=== PATIENT | male | born 1970 | race Caucasian/White ===

== ENCOUNTER → 2020-09-27 06:52 | Outpatient (CLI) | payer OTHER, SELFPAY ==
[2020-09-27 19:11] LABS: SARS-CoV-2 RNA PCR Negative
== END ==
PROVIDERS: PCP Internal Medicine; Visit Provider Nurse Practitioner
DX: R52 Pain, unspecified (principal); Z20.822 Contact with and (suspected) exposure to COVID-19
CPT/HCPCS: C9803; U0003; U0005

== ENCOUNTER 2021-01-10 00:34 | Day surgery (SDC) | payer OTHER, SELFPAY ==
[2020-12-27 11:53] VITALS: BMI 34.1
[2020-12-27 12:11] VITALS: BMI 34.1
[2021-01-10 08:18] VITALS: BP 153/95; PULSE 100; RESP 18; TEMP 36.8; O2SAT 100; BMI 34.7
[2021-01-10 08:32] LABS: Glucose Point of Care 197 mg/dl (65-105)
[2021-01-10] MEDS: LACTATED RINGERS 1,000 ML 150 ML IV CONT (08:32)
--- NOTE | 2021-01-10 08:36 | WPDANESEPPF ---
Anes - Initial Pre Proc Eval Procedure: Operation Date: 01/10/21 09:00 Proposed Procedures p Esophagogastroduodenoscopy & Screening Colonoscopy - Sae Glasgow MD Date/Time: 01/10/21 08:36 Surgeon: Sae Glasgow MD Pre Op Diagnosis: hiccups, GERD, Neoplasm screening Patient Data Age: 50 Gender: M Height: 1.8 m Weight: 112.9 kg Last Vital Signs Temp 36.8 C 01/10/21 08:18 Pulse 100 01/10/21 08:18 Resp 18 01/10/21 08:18 BP 153/95 H 01/10/21 08:18 Pulse Ox 100 01/10/21 08:18 Allergies Allergy/AdvReac Type Severity Reaction Status Date / Time No Known Allergies Allergy Verified 01/10/21 08:11 Home Medications Medication Instructions Recorded Confirmed Type wmvizkyl-gncbtjbm-ezeiv acid 400 1 tablet PO DAILY tablet 10/06/19 12/27/20 History mcg-vit K 20 mcg-lycop 300 mcg tablet testosterone enanthate 50 mg/0.5 50 mg SUB-Q .2XWEEKLY ml 10/06/19 12/27/20 History mL subcutaneous auto-injector metformin 1,000 mg tablet 2,000 mg PO DAILY #180 tablet 12/18/19 12/27/20 Rx mecobalamin (vitamin B12) 5,000 5,000 mcg PO DAILY tablet 12/21/19 12/27/20 History mcg disintegrating tablet meloxicam 15 mg tablet 15 mg PO DAILY 04/09/20 12/27/20 History amlodipine 10 mg tablet 10 mg PO DAILY #90 tablet 11/29/20 12/27/20 Rx lisinopril 40 mg tablet 40 mg PO DAILY #90 tablet 11/29/20 12/27/20 Rx dulaglutide 3 mg/0.5 mL 3 mg SUBCUT WEEKLY 12/02/20 12/27/20 History subcutaneous pen injector pantoprazole 40 mg tablet,delayed 40 mg PO QAM 12/02/20 12/27/20 History release alendronate-vitamin D3 3,000 tablet PO DAILY 12/27/20 12/27/20 History famotidine 20 mg PO DAILY 12/27/20 12/27/20 History Laboratory Tests 01/10/21 08:30 POC Capillary Glucose 197 mg/dl H mg/dl (65-105) Patient hx anesthesia problems: none Family hx anesthesia problems: none Results Review: All pre-operative results and documents have been reviewed as part of the pre-operative evaluation. [facility] Past Medical History Medical History COVID Diabetes GERD (gastroesophageal reflux disease) HTN (hypertension) Surgical History Surgical History (Updated 01/10/21 @ 08:37 by Paul Sanabria MD) History of appendectomy 1973 History of left hip replacement 2009 History of repair of ACL History of right hip replacement 2017 Family History Family History Mother Hypertension Diabetes mellitus Alzheimers disease Father Hypertension Diabetes mellitus Heart problem Pancreatic cancer Grandparent Carcinoma of colon Alzheimers disease Sibling Irritable bowel syndrome Social History Social History Smoking status: Former smoker Tobacco type: cigarettes Additional smoking assessment comments: quit 21 years ago Alcohol intake: former Substance use: unknown Substance use type: does not use Living arrangements: with family 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 Informed Consent: The patient's anesthetic plan and its attendant risks and benefits were discussed with the patient/family/POA. Questions were solicited and answers provided to the satisfaction of the patient/family/POA.
--- NOTE | 2021-01-10 09:01 | PM.HPGS ---
History of Present Illness History of Present Illness Consent: Risks, benefits, and alternatives have been discussed and questions answered. Patient agrees to proceed with procedure. Chief complaint: hiccups, GERD, Neoplasm screening Narrative: Gavino Grace is a 50 year old male with gerd controlled with protonix, hiccups since COVID but slowly improving. Never had scopes. Review of Systems Constitutional: Constitutional: Denies headache(s) and Denies weakness Eyes: Eyes: Denies blurry vision ENT: Reports Normal hearing present, Denies headache(s) and Denies neck pain Cardiovascular: Cardiovascular: Denies chest pain and Denies dyspnea Respiratory: Respiratory: Denies dyspnea Gastrointestinal: Gastrointestinal: Reports no additional gastrointestinal complaints Genitourinary: Genitourinary: Denies dysuria Musculoskeletal: Musculoskeletal: Denies neck pain Integumentary/Breasts: Skin/Breast: Denies dry skin Neurologic: Reports Normal hearing present, Denies headache(s) and Denies weakness Psychiatric: Psychiatric: Denies anxiety Endocrine: Endocrine: Denies change in body appearance Hematologic/Lymphatic: Hematologic/Lymphatic: Denies easy bleeding Allergic/Immunologic: Allergic/Immunologic: Denies urticaria PMFSH Past Medical History Medical History (Updated 01/10/21 @ 09:02 by Sae Glasgow MD) Colon cancer screening COVID Diabetes GERD (gastroesophageal reflux disease) HTN (hypertension) Surgical History Surgical History (Updated 01/10/21 @ 08:37 by Paul Sanabria MD) History of appendectomy 1973 History of left hip replacement 2009 History of repair of ACL History of right hip replacement 2016 Family History Family History Mother Hypertension Diabetes mellitus Alzheimers disease Father Hypertension Diabetes mellitus Heart problem Pancreatic cancer Grandparent Carcinoma of colon Alzheimers disease Sibling Irritable bowel syndrome Social History Social History Smoking status: Former smoker Tobacco type: cigarettes Additional smoking assessment comments: quit 21 years ago Alcohol intake: former Substance use: unknown Substance use type: does not use Living arrangements: with family 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 Gender identity (if verbalized by the patient): Male Spiritual care concerns: No Meds Home Medications and Allergies Home Medications Medication Instructions Recorded Confirmed Type dyzoduyn-ilohjpyg-hdbgy acid 400 1 tablet PO DAILY tablet 10/06/19 12/27/20 History mcg-vit K 20 mcg-lycop 300 mcg tablet testosterone enanthate 50 mg/0.5 50 mg SUB-Q .2XWEEKLY ml 10/06/19 12/27/20 History mL subcutaneous auto-injector metformin 1,000 mg tablet 2,000 mg PO DAILY #180 tablet 12/18/19 12/27/20 Rx mecobalamin (vitamin B12) 5,000 5,000 mcg PO DAILY tablet 12/21/19 12/27/20 History mcg disintegrating tablet meloxicam 15 mg tablet 15 mg PO DAILY 04/09/20 12/27/20 History amlodipine 10 mg tablet 10 mg PO DAILY #90 tablet 11/29/20 12/27/20 Rx lisinopril 40 mg tablet 40 mg PO DAILY #90 tablet 11/29/20 12/27/20 Rx dulaglutide 3 mg/0.5 mL 3 mg SUBCUT WEEKLY 12/02/20 12/27/20 History subcutaneous pen injector pantoprazole 40 mg tablet,delayed 40 mg PO QAM 12/02/20 12/27/20 History release alendronate-vitamin D3 3,000 tablet PO DAILY 12/27/20 12/27/20 History famotidine 20 mg PO DAILY 12/27/20 12/27/20 History Allergies Allergy/AdvReac Type Severity Reaction Status Date / Time No Known Allergies Allergy Verified 01/10/21 08:11 Vital Signs Vital Signs - 24 hr 01/10/21 08:18 Temperature 98.2 F Pulse Rate 100 Respiratory Rate 18 Blood Pressure 153/95 H Pulse Oximetry 100 Exam Const: General: comfortable and no acute distress HENMT: General nose e
[2021-01-10 09:30] VITALS: BP 104/65; PULSE 86; RESP 17; O2SAT 96
[2021-01-10 09:40] VITALS: BP 131/83; PULSE 91; RESP 20; O2SAT 97
[2021-01-10 09:48] LABS: Glucose Point of Care 181 mg/dl (65-105)
[2021-01-10 09:50] VITALS: BP 138/89; PULSE 80; RESP 17; O2SAT 97
== END 2021-01-10 10:01 | disposition home or self-care (01) ==
PROVIDERS: PCP Internal Medicine; Visit Provider Internal Medicine Gastroenterology
PROC: 0DJ08ZZ Inspection of Upper Intestinal Tract, Via Natural or Artificial Opening Endoscopic (ICD-10-PCS; CPT 43235; principal; 2021-01-10 09:00)
DX: Z12.11 Encounter for screening for malignant neoplasm of colon (principal); K29.50 Unspecified chronic gastritis without bleeding; K21.00 Gastro-esophageal reflux disease with esophagitis, without bleeding; K64.8 Other hemorrhoids; R06.6 Hiccough; E11.9 Type 2 diabetes mellitus without complications; I10 Essential (primary) hypertension; Z96.643 Presence of artificial hip joint, bilateral; Z87.891 Personal history of nicotine dependence
CPT/HCPCS: 45378; 43239; 82948; 88305; 88342; J2001; J2704; J7120

== ENCOUNTER 2022-04-09 09:47 | Emergency (ER) | payer OTHER, SELFPAY ==
[2022-04-09 10:02] VITALS: BP 190/97; PULSE 95; RESP 12; TEMP 36.7; O2SAT 98
[2022-04-09 10:06] VITALS: BP 207/111; PULSE 95; RESP 12; TEMP 36.7; O2SAT 98
--- NOTE | 2022-04-09 10:20 | ED.SKABFB ---
HPI - Skin/Abscess/Foreign Bdy General Chief complaint: Skin/Abscess/Foreign Body Stated complaint: Lump on Left Side of Neck Time Seen by Provider: 04/09/22 10:15 Source: patient and RN notes reviewed Mode of arrival: ambulatory Limitations: dementia History of Present Illness HPI narrative: 51-year-old male presents with concern for painful rash on his left scalp, tenderness and drainage behind the left ear. He reports he had a telehealth visit and started on amoxicillin for the drainage behind his left ear 3 days ago without improvement, reports the painful rash has worsened. He denies trouble swallowing, fever, aches, chills, sweats, difficulty hearing. Reports headache MD complaint: rash Related Data Home Medications Medication Instructions Recorded Confirmed fudpzgno-krisotlz-xuezm acid 400 1 tablet PO DAILY 10/06/19 04/09/22 mcg-vit K 20 mcg-lycop 300 mcg tablet (One-A-Day Men's Multivitamin) mecobalamin (vitamin B12) 5,000 5,000 mcg PO DAILY 12/21/19 04/09/22 mcg disintegrating tablet cholecalciferol (vitamin D3) 50 50 mcg PO DAILY 04/09/22 04/09/22 mcg (2,000 unit) tablet omega 2-odj-oel-fish oil 1,600 5 ml PO DAILY 04/09/22 04/09/22 mg-500 mg-800 mg/5 mL oral liquid (Fish Oil) Allergies Allergy/AdvReac Type Severity Reaction Status Date / Time No Known Allergies Allergy Verified 04/09/22 10:03 Review of Systems Review of Systems: CONSTITUTIONAL: Denies malaise, chills, sweats, or fever. EYES: Denies redness, or discharge. ENT: Denies rhinorrhea, congestion, swollen lips, swollen tongue CARDIOVASCULAR: Denies chest pain, palpitations, or edema. RESPIRATORY: Denies cough or dyspnea. GASTROINTESTINAL: Denies abdominal pain, nausea, vomiting SKIN: Reports painful itchy rash on the left posterior scalp. Reports tenderness and drainage in the crease behind the left ear. Denies bullae, numbness, pain beyond proportion MUSCULOSKELETAL: Denies joint pain or myalgia. NEUROLOGIC: Denies headache. All systems reviewed & are unremarkable except as noted in HPI and below PMFSH Past Medical History Medical History (Updated 04/09/22 @ 10:23 by Janis Rdz NP) Colon cancer screening COVID Diabetes GERD (gastroesophageal reflux disease) HTN (hypertension) Obesity Surgical History Surgical History History of appendectomy 1973 History of left hip replacement 2009 History of repair of ACL History of right hip replacement 2017 Family History Family History Mother Hypertension Diabetes mellitus Alzheimers disease Father Hypertension Diabetes mellitus Heart problem Pancreatic cancer Grandparent Carcinoma of colon Alzheimers disease Sibling Irritable bowel syndrome Social History Social History Smoking status: Former smoker Tobacco type: cigarettes Additional smoking assessment comments: quit 21 years ago Alcohol intake: former Substance use: unknown Substance use type: does not use Living arrangements: with family Occupation/Education: occupation 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 There is no relevant family history pertinent to the presenting complaint Exam Narrative: GENERAL: Well-appearing, well-nourished, and in no acute distress. HEAD: Normocephalic, atraumatic. EYES: PERRLA, conjunctivae clear ENT: Mucous membranes moist. NECK: Supple. No lymphadenopathy CHEST: Clear to auscultation. No respiratory distress. HEART: Regular rate and rhythm. SKIN: Warm, dry. Zosteriform rash noted on the patient's scalp behind the left ear. The crease behind the left ear has a smal
== END 2022-04-09 10:35 | disposition home or self-care (01) ==
PROVIDERS: Emergency Provider Nurse Practitioner; PCP Internal Medicine
DX: S11.90XA Unspecified open wound of unspecified part of neck, initial encounter (principal); L08.9 Local infection of the skin and subcutaneous tissue, unspecified; X58.XXXA Exposure to other specified factors, initial encounter; B02.9 Zoster without complications; Z87.891 Personal history of nicotine dependence; E11.9 Type 2 diabetes mellitus without complications; K21.9 Gastro-esophageal reflux disease without esophagitis; I10 Essential (primary) hypertension; E66.9 Obesity, unspecified; Z68.34 Body mass index [BMI] 34.0-34.9, adult; Z86.16 Personal history of COVID-19; Z96.643 Presence of artificial hip joint, bilateral
CPT/HCPCS: 87070; 87075; 87076; 87147; 87185; 87205; 99213; G0463

== ENCOUNTER 2022-06-23 07:38 | Outpatient (RCR) | payer OTHER, SELFPAY ==
[2022-06-23 10:36] VITALS: BMI 34.1
[2022-06-23 15:39] VITALS: BMI 34.1
== END 2022-09-07 11:12 | disposition home or self-care (01) ==
LOC: ANHDMC 07:38
PROVIDERS: PCP Internal Medicine; Visit Provider Internal Medicine
DX: E66.01 Morbid (severe) obesity due to excess calories (principal); Z68.35 Body mass index [BMI] 35.0-35.9, adult; Z71.3 Dietary counseling and surveillance
CPT/HCPCS: 97802

== ENCOUNTER 2022-12-01 15:27 | Outpatient (CLI) | payer OTHER, SELFPAY ==
[2022-12-01 16:36] LABS: Basophils Percent Auto 0.4 % (0.2-1.2); Eosinophils Absolute Auto 0.1 K/mm3 (0-0.3); Eosinophils Percent Auto 1.3 % (0-4.4); Hematocrit 56.3 % (42.0-52.0); Hemoglobin 18.7 g/dL (14.0-18.0); Immature Granulocyte Absolute 0.03 K/mm3 (0.00-0.031); Immature Granulocyte Percent A 0.4 % (0-0.5); Lymphocytes Absolute Auto 2.23 K/mm3 (0.9-3.2); Lymphocytes Percent Auto 27.2 % (18.3-44.2); Mean Corpuscular HGB Conc 33.2 g/dl (32-36); Mean Corpuscular Hemoglobin 27.9 pg (26-34); Mean Platelet Volume 10.5 fl (7.4-10.4); Monocytes Absolute Auto 0.7 K/mm3 (0.1-0.6); Monocytes Percent Auto 8.3 % (2.6-8.5); Neutrophils Absolute Auto 5.1 K/mm3 (1.3-6.7); Neutrophils Percent Auto 62.4 % (45.5-73.1); Platelet Count Result 281 k/mm3 (150-375); White Blood Count 8.2 K/mm3 (4.5-10.0)
[2022-12-01 16:46] LABS: Alanine Aminotransferase 51 U/L (6-50); Albumin Level 4.5 g/dL (3.5-5.1); Alkaline Phosphatase 65 U/L (38-126); Anion Gap 11 mmol/L (8-16); Aspartate Amino Transferase 40 U/L (17-59); Blood Urea Nitrogen 9 mg/dL (9-20); Calcium 9.7 mg/dL (8.4-10.2); Carbon Dioxide 33 mmol/L (22-30); Chloride 96 mmol/L (98-107); Estimated Glomerular Filt Rate > 60; Glucose 142 mg/dL (65-110); Potassium 3.7 mmol/L (3.4-5.0); Sodium 140 mmol/L (137-145)
== END 2022-12-01 15:28 | disposition home or self-care (01) ==
LOC: ANHGOSHLAB 15:28
PROVIDERS: PCP Internal Medicine; Visit Provider Nurse Practitioner
DX: R11.2 Nausea with vomiting, unspecified (principal)
CPT/HCPCS: 36415; 80053; 85025

== ENCOUNTER 2023-05-13 11:46 | Outpatient (CLI) | payer OTHER, SELFPAY ==
--- NOTE | ~2023-05-13 | CT_ITS ---
EXAMINATION: CT abdomen pelvis w con DATE: 05/13/2023 12:36 INDICATION: Unspecified abdominal pain. Pleurodynia. TECHNIQUE: Computed tomography (CT) of the abdomen and pelvis was performed with 100 mL Omnipaque 350 intravenous contrast. Automated exposure control and iterative reconstruction technique were employe d. The dose-length product was 1129.59 mGy-cm. COMPARISON: None. FINDINGS: The visualized portions of the lung bases demonstrate mild atelectasis. No pleural effusion . The heart size is normal. No pericardial effusion. The liver and spleen are normal. The gallbladder is distended. The pancreas, adrenal glands, and kidneys are normal. The prostate is mildly enlarged. There are no dilated loops of bowel. The appendix is not visualized. There are no pathologically enl arged lymph nodes. There is no free intraperitoneal fluid. There are bilateral hip arthroplasties. Th ere is severe lower lumbar spondylosis. IMPRESSION: 1. Gallbladder distention, which may be secondary to fasting. Correlate with physical exam to exclude acute cholecystitis. Reviewed, dictated and finalized at location A. GRADER IMPRESSION: 1. Gallbladder distention, which may be secondary to fasting. Correlate with ph ysical exam to exclude acute cholecystitis.
[2023-05-13 12:27] LABS: Estimated Glomerular Filt Rate > 60
== END 2023-05-13 11:47 | disposition home or self-care (01) ==
LOC: ANHIMG 11:46
PROVIDERS: PCP Internal Medicine; Visit Provider Clinical Nurse Specialist
DX: R07.81 Pleurodynia (principal); R10.9 Unspecified abdominal pain
CPT/HCPCS: 74177; Q9967

== ENCOUNTER 2023-05-13 14:01 | Emergency (ER) | payer OTHER, SELFPAY ==
--- NOTE | ~2023-05-13 | US_ITS ---
EXAMINATION: US right upper quadrant DATE: 05/13/2023 16:04 INDICATION: Right anterior rib pain and tachycardia. Gallbladder distended on CT. TECHNIQUE: Multiple grayscale and Doppler ultrasound images of the abdomen were obtained. COMPARISON: CT dated 05/13/2023 FINDINGS: The pancreatic head and body are normal in appearance. The pancreatic tail is not visualized. Liver has normal echogenicity and contour, with a smooth surface. No liver lesion identified. No intrahepat ic biliary duct dilation suspected. Portal venous flow was seen in the hepatopetal, normal direction and has normal Doppler waveform. The gallbladder is normal in appearance. There is no cholelithiasis . The common bile duct measures 6 mm, which is normal. Sonographic Lima sign was reported as negati ve by the electrician's helper. The visualized proximal inferior vena cava is normal. IMPRESSION: 1. Normal right upper quadrant ultrasound. Reviewed, dictated and finalized at location L. N CONTRACT REPRESENTATIVE
--- NOTE | ~2023-05-13 | CT_ITS ---
EXAMINATION: CTA chest PE protocol DATE: 05/13/2023 15:45 INDICATION: Right inferior rib pain. TECHNIQUE: Computed tomography angiography (CTA) of the chest was performed with 100 mL Omnipaque-350 intravenous contrast timed to evaluate the pulmonary arteries. Coronal maximum intensity projection 3D-reconstructions were created by the technologist. Automated exposure control and iterative reconst ruction technique were employed. The dose-length product was 825.28 mGy-cm. COMPARISON: CT abdomen and pelvis 05/13/2023 FINDINGS: The visualized portions of the lung bases demonstrate mild atelectasis. No pleural effusion . The heart size is normal. No pericardial effusion. There is no pulmonary embolus. The gallbladder i s distended. There is mild thoracic spondylosis. There are changes of anterior fusion procedure in ce rvical spine. IMPRESSION: 1. No pulmonary embolus. 2. Gallbladder distention, which may be secondary to fasting. Correlate with physical exam to exclude acute cholecystitis. Reviewed, dictated and finalized at location A. ULAR TECHNOLOGIST SONOGRAPHER IMPRESSION: 1. No pulmonary embolus. 2. Gallbladder distention, which may be secondary to fasting. Correlate with ph ysical exam to exclude acute cholecystitis.
[2023-05-13 14:30] VITALS: BP 161/98; PULSE 116; RESP 16; TEMP 36.5; O2SAT 96
--- NOTE | 2023-05-13 14:59 | ECG_ITS ---
Measurements Intervals [place] Rate: 108 P: 53 TX: 151 QRS: 18 QRSD: 86 T: 30 QT: 306 QTc: 411 Interpretive Statements SINUS TACHYCARDIA SEPTAL MYOCARDIAL INFARCTION , OF INDETERMINATE AGE [40+ ms Q WAVE IN V1/V2] NO PREVIOUS ECG AVAILABLE FOR COMPARISON Electronically Signed On 05-13-2023 15:54:56 MENTAL HYGIENIST by Shae Montesinos M.D.
--- NOTE | 2023-05-13 15:03 | ED.ABDPAIN ---
HPI - Abdominal Pain General Chief Complaint: Abdominal Pain Stated Complaint: sent by PCP Time Seen by Provider: 05/13/23 14:40 History of Present Illness HPI narrative: 52-year-old male with a history of hypertension, diabetes, recent shoulder surgery performed on 04/21/2023 presents to the emergency department for evaluation of right inferior rib and right upper quadrant Abdominal pain x3 days. patient states the pain feels burning and describes it as needle-like sensation similar to prior shingles. Patient states he went to his PCP who was concerned it may be early onset shingles , however there is no rash so she ordered a CT scan of his abdomen/pelvis. Outpatient CT today which shows gallbladder distention which may be secondary to fasting verses acute cholecystitis. Patient states PCP contacted him and urged him to come to the ER for further evaluation. He states his pain started in his right side and points to his inferior right ribs and upper abdomen. States it is now radiating more anteriorly and posteriorly up into his back. He denies aggravating or relieving factors, chest pain or shortness of breath, lower extremity edema, prior history of VTE. Prior abdominal surgeries include appendectomy. He is not anticoagulated. Related Data Home Medications Medication Instructions Recorded Confirmed ecmuntuw-zpyxhdug-ufxfn acid 400 1 tablet PO DAILY 10/06/19 05/11/23 mcg-vit K 20 mcg-lycop 300 mcg tablet (One-A-Day Men's Multivitamin) mecobalamin (vitamin B12) 5,000 5,000 mcg PO DAILY 12/21/19 05/11/23 mcg disintegrating tablet cholecalciferol (vitamin D3) 50 50 mcg PO DAILY 04/09/22 05/11/23 mcg (2,000 unit) tablet Allergies Allergy/AdvReac Type Severity Reaction Status Date / Time No Known Allergies Allergy Verified 05/13/23 14:42 Review of Systems Review of Systems: CONSTITUTIONAL: Denies fever, chills, or sweats. EYES: Denies visual changes, redness, or discharge. ENT: Denies rhinorrhea, congestion, sore throat, or otalgia. CARDIOVASCULAR: see HPI RESPIRATORY: Denies cough or dyspnea. GASTROINTESTINAL: See HPI GENITOURINARY: Denies dysuria or hematuria. SKIN: Denies rash or itching. MUSCULOSKELETAL: Denies back pain, joint pain, or myalgia. NEUROLOGIC: Denies headache, numbness, or weakness. PSYCHIATRIC: Denies anxiety or depression. [facility] Past Medical History Medical History Anterior ST segment depression Cervical radiculopathy due to intervertebral disc disorder Colon cancer screening COVID Diabetes GERD (gastroesophageal reflux disease) HTN (hypertension) Obesity Ptosis of eyelid, left Shingles Type 2 diabetes mellitus Surgical History Surgical History History of appendectomy 1973 History of left hip replacement 2009 History of repair of ACL History of right hip replacement 2017 Family History Family History Mother Hypertension Diabetes mellitus Alzheimers disease Father Hypertension Diabetes mellitus Heart problem Pancreatic cancer Grandparent Carcinoma of colon Alzheimers disease Sibling Irritable bowel syndrome Social History Social History Smoking status: Former smoker Tobacco type: cigarettes Additional smoking assessment comments: quit 21 years ago Alcohol intake: former Substance use: unknown Substance use type: does not use Current Housing: Decline to Answer Concerned About Future Housing: Decline to Answer Difficulty Paying Gas/Electric Bills: Decline to Answer Difficulty Paying for Meds: Decline to Answer Currently Unemployed: Decline to Answer Education: Decline to Answer Difficulty w/ Childcare or Family Care: Decline to Answer Living arrangements: with family Occupation/E
[2023-05-13] MEDS: ACETAMINOPHEN 500 MG TABLET 1000 MG PO (15:19)
[2023-05-13] MEDS: SODIUM CHLORIDE 0.9% IV 1,000 ML 999 ML IV CONT ×2 (15:21→16:08)
[2023-05-13 15:30] LABS: Basophils Percent Auto 0.3 % (0.2-1.2); Eosinophils Absolute Auto 0.1 K/mm3 (0-0.3); Eosinophils Percent Auto 0.9 % (0-4.4); Hemoglobin 18.4 g/dL (14.0-18.0); Immature Granulocyte Absolute 0.03 K/mm3 (0.00-0.031); Immature Granulocyte Percent A 0.3 % (0-0.5); Lymphocytes Absolute Auto 2.06 K/mm3 (0.9-3.2); Lymphocytes Percent Auto 20.1 % (18.3-44.2); Mean Corpuscular HGB Conc 33.5 g/dl (32-36); Mean Corpuscular Hemoglobin 28.4 pg (26-34); Mean Platelet Volume 9.8 fl (7.4-10.4); Monocytes Absolute Auto 0.8 K/mm3 (0.1-0.6); Monocytes Percent Auto 7.4 % (2.6-8.5); Neutrophils Absolute Auto 7.3 K/mm3 (1.3-6.7); Platelet Count Result 310 k/mm3 (150-375); Red Blood Count 6.47 M/mm3 (4.6-6.20); White Blood Count 10.2 K/mm3 (4.5-10.0)
[2023-05-13 15:36] LABS: Estimated CRCL calculation 109 ml/min; Estimated Glomerular Filt Rate > 60
[2023-05-13 15:42] LABS: Alanine Aminotransferase 38 U/L (6-50); Albumin Level 4.6 g/dL (3.5-5.1); Alkaline Phosphatase 78 U/L (38-126); Anion Gap 12 mmol/L (8-16); Aspartate Amino Transferase 37 U/L (17-59); Bilirubin,Total 0.9 mg/dL (0.2-1.3); Blood Urea Nitrogen 16 mg/dL (9-20); Calcium 9.7 mg/dL (8.4-10.2); Carbon Dioxide 29 mmol/L (22-30); Chloride 98 mmol/L (98-107); Estimated CRCL calculation 109 ml/min; Estimated Glomerular Filt Rate > 60; Glucose 171 mg/dL (65-110); Lipase 319 U/L (23-300); Potassium 3.3 mmol/L (3.4-5.0); Sodium 139 mmol/L (137-145)
[2023-05-13 15:53] LABS: Troponin I < 0.012 ng/mL (0.000-0.034)
[2023-05-13 16:00] LABS: Appearance Urine Clear (Clear); Bacteria Urine None Seen /hpf; Bilirubin Urine Negative (Negative); Blood Urine Negative (Negative); Color Urine Yellow (Yellow); Glucose Urine UA Negative (Negative); Ketones Urine Trace mg/dL (Negative); Leukocyte Esterase Ur Negative LEU/UL (Negative); Need Manual Microscopic Reviewed; Nitrate Urine Negative (Negative); Non Pathogenic Casts 0-2; Protein Urine 1+ mg/dL (Negative); RBC Urine 0-2 /hpf (0-2); Squamous Epithelial Cell Urine None seen /hpf (Few); Urobilinogen Urine 0.2 mg/dL (<2.0); WBC Urine 0-5 /hpf
[2023-05-13 16:04] LABS: Add Urine Microscopic? YES
[2023-05-13 16:46] VITALS: BP 151/98; PULSE 100; RESP 14; O2SAT 98
[2023-05-13] MEDS: POTASSIUM CHLORIDE 20 MEQ PACKET (FOR LIQUID) PO (16:46)
[2023-05-13] MEDS: MORPHINE SULFATE (*CRX) 4 MG/ML INJ IV PUSH (16:47)
[2023-05-13 17:44] VITALS: BP 154/98; PULSE 103; RESP 13; TEMP 36.6; O2SAT 99
== END 2023-05-13 17:45 | disposition home or self-care (01) ==
PROVIDERS: Emergency Provider Physician Assistant; PCP Internal Medicine
DX: R10.11 Right upper quadrant pain (principal); E86.0 Dehydration; I10 Essential (primary) hypertension; E11.9 Type 2 diabetes mellitus without complications; E66.9 Obesity, unspecified; Z68.31 Body mass index [BMI] 31.0-31.9, adult; Z96.643 Presence of artificial hip joint, bilateral; Z86.16 Personal history of COVID-19; Z87.891 Personal history of nicotine dependence; Z79.4 Long term (current) use of insulin; Z79.85 Long-term (current) use of injectable non-insulin antidiabetic drugs; Z79.84 Long term (current) use of oral hypoglycemic drugs
CPT/HCPCS: 36415; 71275; 74177; 76705; 80053; 81001; 83690; 84484; 85025; 93005; 96361; 96374; 99284; A9270; J2270; J7030; Q9967

== ENCOUNTER 2023-06-22 15:15 | Outpatient (CLI) | payer OTHER, SELFPAY ==
--- NOTE | ~2023-06-22 | US_ITS ---
US right upper quadrant INDICATION: Right upper quadrant pain PROCEDURE: Realtime right upper abdominal ultrasound. COMPARISON: 05/13/2023 FINDINGS: The pancreas is normal without focal mass or pancreatic ductal dilation. Liver echotexture is normal without focal mass or intrahepatic biliary dilatation. There is normal directional flow i n the portal vein. The gallbladder is normal without stones, gallbladder wall thickening or pericholecystic fluid. Comm on bile duct measures 5 mm. No sonographic Lima's sign. Right renal echotexture is unremarkable. IMPRESSION: 1: Normal limited abdominal ultrasound. Reviewed, dictated and finalized at location A.
== END 2023-06-22 15:16 ==
PROVIDERS: PCP Internal Medicine; Visit Provider Clinical Nurse Specialist
DX: R10.11 Right upper quadrant pain (principal)
CPT/HCPCS: 76705

== ENCOUNTER 2023-07-01 11:18 | Outpatient (CLI) | payer OTHER, SELFPAY ==
--- NOTE | ~2023-07-01 | MR_ITS ---
EXAMINATION: MR thoracic spine wo con DATE: 07/01/2023 12:39 INDICATION: Back pain. Radiculopathy, thoracic region. TECHNIQUE: Magnetic resonance imaging (MRI) of the thoracic spine was performed without intravenous c ontrast. Sagittal localizer T1-weighted FSE of the cervical spine was obtained. Thoracic spine sequen mahesh included sagittal T2-weighted FSE, sagittal T1-weighted FSE, sagittal T2-weighted FS FSE, and axi al T2-weighted FSE. COMPARISON: None FINDINGS: There is 4 degrees levocurvature of cervicothoracic spine. There are changes of anterior fu ryan procedure from C4 to C7. Vertebral body heights are normal. There is mildly decreased disc heigh t from T5-T6 through T8-T9 and at T10-T11. At T7-T8, there is a central extrusion with mild central c anal stenosis. At T8-T9, there is a right central protrusion with mild central canal stenosis. The di scs are bulging at T10-T11, T11-T12, and T12-L1 with mild central canal stenosis. There is multilevel mild facet joint osteoarthritis. No neural foraminal stenosis. The spinal cord signal intensity is n ormal. IMPRESSION: 1. Mild thoracic spondylosis. Reviewed, dictated and finalized at location E.
== END 2023-07-01 11:19 ==
LOC: GOSHIMG 11:19
PROVIDERS: PCP Internal Medicine; Visit Provider Internal Medicine
DX: M47.24 Other spondylosis with radiculopathy, thoracic region (principal)
CPT/HCPCS: 72146

== ENCOUNTER 2023-07-08 08:46 | Outpatient (CLI) | payer OTHER, SELFPAY ==
--- NOTE | ~2023-07-08 | NM_ITS ---
EXAMINATION: NM hepatobiliary w pharm DATE: 07/08/2023 10:45 INDICATION: Right upper quadrant abdominal pain COMPARISON: None. TECHNIQUE: 6.0 mCi Tc-99m mebrofenin (Choletec) was administered intravenously. Scintigraphic images of the abdomen were obtained for one hour. 2.0 mcg sincalide (Kinevac) was administered by slow intr avenous infusion, and imaging was continued for 30 minutes. Gallbladder ejection fraction was calcula joão by the technologist. FINDINGS: There is normal clearance of radiotracer from the blood pool. There is homogeneous tracer uptake by t he liver. Activity progresses to the gallbladder and bowel. The gallbladder ejection fraction (GBEF) is 81% (normal 10-90%, but most patient with gallbladder dysfunction have GBEF < 35% which does over lap with the normal range). IMPRESSION: 1. Normal hepatobiliary scan. Reviewed, dictated and finalized at location A.
== END 2023-07-08 08:47 | disposition home or self-care (01) ==
PROVIDERS: PCP Internal Medicine; Visit Provider Clinical Nurse Specialist
DX: R10.11 Right upper quadrant pain (principal)
CPT/HCPCS: 78227; A9537; J2805

== ENCOUNTER 2023-08-16 07:06 | Outpatient (CLI) | payer OTHER, SELFPAY ==
--- NOTE | ~2023-08-16 | NM_ITS ---
EXAM: NM gastric emptying study DATE: 08/16/2023 11:39 INDICATION: Bilious vomiting. TECHNIQUE: A gastric emptying study was performed using the methodology of June JHA, et al. J Nucl Med 2007; 48:568-572. The patient was given a meal consisting of 2 scrambled eggs labeled with 1.059 mCi Tc-99m sulfur colloid, 2 slices of toast, two packages of jam, and approximately 120 mL of water . Simultaneous anterior and posterior 1-min images of the abdomen were obtained with the patient supi ne at multiple time points over a total period of 4 hours. The geometric mean of anterior and posteri or views was determined, and the percentage retention was calculated for each time point. COMPARISON: CT abdomen and pelvis 05/13/2023 FINDINGS: Gastric retention of the radiotracer-labeled meal was 42%, 34%, and 33% at the 1-hour, 2-h our, and 4-hour time points, respectively. With this technique, apparent rapid gastric emptying is sharpe ggested by <30% gastric retention at 1 hour. Delayed gastric emptying is defined by gastric retention of >90% at 1 hour, >60% retention at 2 hours, or >10% retention at 4 hours. IMPRESSION: 1. Delayed gastric emptying. Reviewed, dictated and finalized at location A.
== END 2023-08-16 07:07 | disposition home or self-care (01) ==
PROVIDERS: PCP Internal Medicine; Visit Provider Nurse Practitioner Family
DX: R10.11 Right upper quadrant pain (principal); K21.9 Gastro-esophageal reflux disease without esophagitis; R68.81 Early satiety; R63.0 Anorexia; R11.14 Bilious vomiting; K30 Functional dyspepsia
CPT/HCPCS: 78264; A9541